=== PATIENT | female | born 1975 | race Caucasian/White ===

== ENCOUNTER 2019-12-29 14:13 | Emergency (ER) | payer OTHER, SELFPAY ==
[2019-12-29 14:24] VITALS: BP 114/62; PULSE 74; RESP 18; TEMP 37.4; O2SAT 99
--- NOTE | 2019-12-29 15:04 | ED.GENADULT ---
HPI - General Adult General Chief complaint: Upper Respiratory Infection Stated complaint: Fever Source: patient Mode of arrival: ambulatory Limitations: no limitations History of Present Illness HPI narrative: Patient is a 44-year-old female who presents complaining of sore throat, fever, body aches and weakness x2 days. 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 She denies chest pain or shortness of breath. She reports taking [id number] medications with limited relief. MD complaint: Influenza-like symptoms Related Data Home Medications Medication Instructions Recorded Confirmed levothyroxine 175 mcg DAILY 12/29/19 12/29/19 triamterene-hydrochlorothiazid 1 cap DAILY 12/29/19 12/29/19 Allergies Allergy/AdvReac Type Severity Reaction Status Date / Time PCN Allergy Intermediate Hives / Uncoded 12/29/19 14:18 Red Face Review of Systems Review of Systems: Narrative: CONSTITUTIONAL: Reports fever and chills, reports generalized weakness EYES: Denies visual changes, redness, or discharge. ENT: Denies rhinorrhea, congestion, reports sore throat CARDIOVASCULAR: Denies chest pain, palpitations, or edema. RESPIRATORY: Reports cough, denies dyspnea. GASTROINTESTINAL: Denies abdominal pain, nausea, vomiting, or diarrhea. GENITOURINARY: Denies dysuria or hematuria. SKIN: Denies rash or itching. MUSCULOSKELETAL: Denies back pain, joint pain, or myalgia. NEUROLOGIC: Denies headache, numbness, dizziness, or weakness. PSYCHIATRIC: Denies anxiety or depression. [facility] Past Medical History Medical History HTN (hypertension) Hypercholesterolemia Surgical History Surgical History Gastric bypass status for obesity Hx of cholecystectomy Social History Social History (Updated 12/29/19 @ 15:08 by AMINAH Clemons) Smoking status: Never smoker Alcohol intake: never Substance use: never Living arrangements: with family Occupation/Education: occupation Gender identity (if verbalized by the patient): Female Exam Narrative: Exam Narrative: GENERAL: Ill-appearing but well-nourished, and in no acute distress. HEAD: Normocephalic, atraumatic. EYES: EOMI. No redness or drainage. Conjunctiva are normal. ENT: Mucous membranes pink and moist. Nares clear. No rhinorrhea. TMs normal bilaterally. Throat mild erythema, no edema l. Uvula midline. NECK: AROM. Supple. No lymphadenopathy. CHEST: No respiratory distress. Clear to auscultation. HEART: Regular rate and rhythm. No murmur appreciated. Normal peripheral pulses. GI: Soft, nontender without rebound, or guarding. No distention. Bowel sounds normal in all quadrants. EXTREMITIES: Normal range of motion. No edema. SKIN: Warm, dry, no rash. NEURO: No focal deficits. Alert and oriented x3. Gait steady. PSYCH: Normal affect. No signs of depression or anxiety. Course Vital Signs Vital signs: Vital Signs Temperature 37.4 C 12/29/19 14:24 Pulse Rate 74 12/29/19 14:24 Respiratory Rate 18 12/29/19 14:24 Blood Pressure 114/62 12/29/19 14:24 Pulse Oximetry 99 12/29/19 14:24 Temperature 37.4 C 12/29/19 14:24 Pulse Rate 74 12/29/19 14:24 Respiratory Rate 18 12/29/19 14:24 Blood Pressure 114/62 12/29/19 14:24 Pulse Oximetry 99 12/29/19 14:24 Reviewed. Influenza positive Medical Decision Making MDM Narrative Medical decision making narrative: Patient is influenza positive. Discussed plan of care with patient. Patient be started on Tamiflu at this time. Work note provided. Patient is stable for discharge to home with outpatient follow-up as needed. Differential Diagnosis Differential Diagnosis: Influenza, pharyngitis, URI, Vital Signs Vital Signs: Vital Signs Temperature 37.4 C 12/29/19 14:24 Pulse Rate 74 12/29/19 14:24 Respiratory Rate 18 12/29/19 14:24
== END 2019-12-29 15:15 | disposition home or self-care (01) ==
PROVIDERS: Emergency Provider Nurse Practitioner; PCP Nurse Practitioner Family
DX: J10.1 Influenza due to other identified influenza virus with other respiratory manifestations (principal); I10 Essential (primary) hypertension; E78.00 Pure hypercholesterolemia, unspecified; Z98.84 Bariatric surgery status
CPT/HCPCS: 87081; 87804; 87880; 99213; G0463

== ENCOUNTER 2021-02-14 10:14 | Emergency (ER) | payer OTHER, SELFPAY ==
--- NOTE | ~2021-02-14 | XR_ITS ---
EXAMINATION: XR chest 2V DATE: 02/14/2021 10:40 INDICATION: Cough. TECHNIQUE: Frontal and lateral views of the chest were obtained. COMPARISON: None. FINDINGS: The chest demonstrates clear lungs without pneumonia, pleural effusion, or pneumothorax. Th e heart size is normal. There are surgical clips in the abdomen. IMPRESSION: 1. No acute cardiopulmonary disease. Reviewed, dictated and finalized at location A.
[2021-02-14 10:24] VITALS: BP 139/77; PULSE 69; RESP 16; TEMP 36.8; O2SAT 99
--- NOTE | 2021-02-14 10:30 | ED.URI ---
HPI - URI/Sore Throat General Chief Complaint: Upper Respiratory Infection Stated Complaint: COUGH Time Seen by Provider: 02/14/21 10:30 Source: patient Mode of arrival: ambulatory Limitations: no limitations History of Present Illness HPI Narrative: Rachael Martin is a 45 yo female with c/o cough x 10 days with thick dark yellow mucous, has only used NyQuil states that she will stay up all night long coughing she did not take the NyQuil Related Data Home Medications Medication Instructions Recorded Confirmed levonorgestrel [Mirena] 1 device INTRAUTERINE ONCE 02/14/21 02/14/21 levothyroxine 1 mcg PO DAILY 02/14/21 02/14/21 triamterene-hydrochlorothiazid 1 cap PO DAILY 02/14/21 02/14/21 Allergies Allergy/AdvReac Type Severity Reaction Status Date / Time PCN Allergy Intermediate Hives / Uncoded 02/14/21 10:29 Red Face Review of Systems Review of Systems: Narrative: CONSTITUTIONAL: Denies fever, chills, sweats. EYES: Denies visual changes, redness, discharge. ENT: Denies rhinorrhea, congestion, sore throat, otalgia. CARDIOVASCULAR: Denies chest pain, palpitations, edema. RESPIRATORY: Denies dyspnea, wheezing, intermittent productive cough GASTROINTESTINAL: Denies abdominal pain, nausea, vomiting, diarrhea. GENITOURINARY: Denies dysuria, hematuria, abnormal discharge SKIN: Denies rash or itching. NEUROLOGIC: Denies numbness, or focal weakness. PSYCHIATRIC: Denies anxiety or depression. PMFSH Past Medical History Medical History (Updated 02/14/21 @ 10:58 by Jyothi Torres CNP) HTN (hypertension) Hypercholesterolemia Surgical History Surgical History Gastric bypass status for obesity Hx of cholecystectomy Social History Social History Smoking status: Never smoker Alcohol intake: never Substance use: never Gender identity (if verbalized by the patient): Female Comments At time of signature, I agree with nursing past medical, surgical, social and family history. There is no relevant family history pertinent to the presenting complaint. Exam Narrative: Exam Narrative: GENERAL: This is a well-nourished, well-developed patient, in mild distress. Obese HEAD: normocephalic, atraumatic. EYES: Sclera clear/white. Vision is grossly intact. EARS: External ears normal,. Hearing grossly intact. No erythema of the auditory canal NOSE: External nose normal without nasal discharge, nares without redness, a dry hacking cough on exam rhinorrhea. THROAT: Mucous membranes moist, posterior pharynx mild erythema- NECK: Neck supple, non-tender CARDIOVASCULAR: Regular rate and rhythm without murmurs, gallops, or rubs. RESPIRATORY: Coarse to auscultation. Breath sounds equal bilaterally. No wheezes, rales, or rhonchi. GASTROINTESTINAL: Abdomen soft, non-tender, SKIN: warm, intact with no suspicious lesions or rash, good texture and turgor. NEURO: awake, alert, and oriented to person, place and time. There were no obvious focal neurologic abnormalities. Steady gait EXTREMITIES: Normal range of motion. BACK: Nontender without deformity Course Course Emergency Course: [facility] complaints of a cough x10 days it is productive of yellow thick mucus Chest x-ray shows no acute cardiopulmonary disease Started on prednisone and Zithromax and cough medicine Follow-up with primary care physician Vital Signs Vital signs: Vital Signs Temperature 98.2 F 02/14/21 10:24 Pulse Rate 69 02/14/21 10:24 Respiratory Rate 16 02/14/21 10:24 Blood Pressure 139/77 02/14/21 10:24 Pulse Oximetry 99 02/14/21 10:24 Temperature 98.2 F 02/14/21 10:24 Pulse Rate 69 02/14/21 10:24 Respiratory Rate 16 02/14/21 10:24 Blood Pressure 139/77 02/14/21 10:24 Pulse Oximetry 99 02/14/21 10:24 MDM - URI/Sore Throat Differential Diagnosis Differential diagnosis: Likely upper re
== END 2021-02-14 11:06 | disposition home or self-care (01) ==
PROVIDERS: Emergency Provider Nurse Practitioner
DX: J40 Bronchitis, not specified as acute or chronic (principal); I10 Essential (primary) hypertension; E78.00 Pure hypercholesterolemia, unspecified; Z98.84 Bariatric surgery status
CPT/HCPCS: 71046; 99213; G0463

== ENCOUNTER 2023-04-18 17:46 | Emergency (ER) | payer OTHER, SELFPAY ==
[2023-04-18 17:55] VITALS: BP 134/77; PULSE 78; RESP 16; TEMP 37.1; O2SAT 99
--- NOTE | 2023-04-18 18:15 | ED.SKABFB ---
HPI - Skin/Abscess/Foreign Bdy General Chief complaint: Skin/Abscess/Foreign Body Stated complaint: Rash Time Seen by Provider: 04/18/23 18:15 Source: patient, RN notes reviewed and old records reviewed Mode of arrival: ambulatory Limitations: no limitations History of Present Illness HPI narrative: 47 year old female who presents to [facility] with complaints of developing red raised rash on neck anterior and posterior which started last night that has spread to her face and abdomen,arms, and into her groin. Patient denies any new medications, skin care products, lotions, food, medications or any contact with plants or animals. Patient reports that she has had hives in the past and never knew what caused them. Patient reports that she has been taking Benadryl and using Calamine lotion with no improvement or relief of itching.Patient denies any difficulty with breathing or swallowing,respirations even and nonlabored. MD complaint: rash Onset (ago): day(s) (day 2 of symptoms) Location: generalized Treatments prior to arrival: other (calamine and benadryl) Related Data Home Medications Medication Instructions Recorded Confirmed levonorgestrel 21 mcg/24 hours (8 1 device intrauterine ONCE 02/14/21 02/14/21 yrs) 52 mg intrauterine device (Mirena) levothyroxine 175 mcg tablet 1 mcg PO DAILY 02/14/21 02/14/21 triamterene 37.5 1 cap PO DAILY 02/14/21 02/14/21 mg-hydrochlorothiazide 25 mg capsule venlafaxine 75 mg capsule,extended mg PO 04/18/23 release 24 hr Allergies Allergy/AdvReac Type Severity Reaction Status Date / Time PCN Allergy Intermediate Hives / Uncoded 04/18/23 17:57 Red Face Review of Systems Review of Systems: CONSTITUTIONAL: Denies fever, chills, or sweats. CARDIOVASCULAR: Denies chest pain, palpitations, or edema. RESPIRATORY: Denies cough or dyspnea. SKIN: Reports raised red rash on neck, face, arms, abdomen, and also groin which is itchy. MUSCULOSKELETAL: Denies joint pain or myalgia. NEUROLOGIC: Denies headache, numbness, or weakness. All systems reviewed & are unremarkable except as noted in HPI and below PMFSH Past Medical History Medical History (Updated 04/20/23 @ 10:01 by Sheryl Zamudio NP) HTN (hypertension) Hypercholesterolemia Hypothyroid Surgical History Surgical History Gastric bypass status for obesity Hx of cholecystectomy Social History Social History Smoking status: Never smoker Alcohol intake: never Substance use: never Living arrangements: with family Occupation/Education: occupation Gender identity (if verbalized by the patient): Female Comments At time of signature, agree with nursing past medical, surgical, social and family history. There is no relevant family history pertinent to the presenting complaint Exam Narrative: GENERAL: Well-appearing, well-nourished, and in no acute distress. HEAD: Normocephalic, atraumatic. EYES: PERRLA, conjunctivae clear, and EOMI. ENT: Mucous membranes moist. Oropharynx without edema, erythema or lesions. NECK: Supple. No lymphadenopathy CHEST: Clear to auscultation. No respiratory distress.SAO2 99% on room air HEART: Regular rate and rhythm. SKIN: Warm, dry.? Patches of raised erythema with itching to neck,face, arms, abdomen and also groin, no pustules noted or drainage NEURO:? Alert and oriented x3. PSYCH: Normal mood and affect Course Course Emergency Course: Patient is aware of diagnosis, understands and agrees to treatment plan.? Anticipatory guidance given.? Patient agrees to follow-up as directed and is aware of reasons to seek care at the emergency department. Portions of this record may have been created with voice recognition software Level of Care: Express Care Visit Vital Signs Vital signs: Vital Signs Temperature 37.1 C 04/18/23 17:
[2023-04-18] MEDS: methylPREDNISolone ACETATE 80 MG/ML VIAL IM (18:33)
== END 2023-04-18 19:06 | disposition home or self-care (01) ==
PROVIDERS: Emergency Provider Registered Nurse
DX: L50.9 Urticaria, unspecified (principal); I10 Essential (primary) hypertension; E78.00 Pure hypercholesterolemia, unspecified; E03.9 Hypothyroidism, unspecified; Z98.84 Bariatric surgery status
CPT/HCPCS: 96372; 99213; G0463; J1040

== ENCOUNTER 2023-05-10 15:36 | Emergency (ER) | payer OTHER, SELFPAY ==
[2023-05-10 15:45] VITALS: BP 139/85; PULSE 56; RESP 16; TEMP 36.4; O2SAT 100
--- NOTE | 2023-05-10 15:47 | ED.URI ---
HPI - URI/Sore Throat General Chief Complaint: Upper Respiratory Infection Stated Complaint: throat and chest issues, headache Time Seen by Provider: 05/10/23 15:49 Source: patient and RN notes reviewed Mode of arrival: ambulatory Limitations: no limitations History of Present Illness HPI Narrative: 47-year-old female presented for complaint of sinus pressure in the forehead, postnasal drainage, and cough for about 2 weeks. Taking Sudafed, Tylenol and ibuprofen without relief. She denies shortness of breath, wheezing, nausea, vomiting, diarrhea, fevers or chills. She denies sick contacts. She tested negative for COVID twice at the onset of symptoms. MD elicited complaint: cough Related Data Home Medications Medication Instructions Recorded Confirmed levonorgestrel 21 mcg/24 hours (8 1 device intrauterine ONCE 02/14/21 05/10/23 yrs) 52 mg intrauterine device (Mirena) levothyroxine 175 mcg tablet 1 mcg PO DAILY 02/14/21 05/10/23 triamterene 37.5 1 cap PO DAILY 02/14/21 05/10/23 mg-hydrochlorothiazide 25 mg capsule venlafaxine 75 mg capsule,extended 75 mg PO DAILY 04/18/23 05/10/23 release 24 hr Allergies Allergy/AdvReac Type Severity Reaction Status Date / Time PCN Allergy Intermediate Hives / Uncoded 05/10/23 15:46 Red Face Review of Systems Review of Systems: CONSTITUTIONAL: Denies malaise, chills, sweats, fever EYES: Denies visual changes, redness, or discharge ENT: Reports rhinorrhea, congestion, sinus pain, otalgia, sore throat CARDIOVASCULAR: Denies chest pain, palpitations, edema RESPIRATORY: Reports cough, post nasal drainage. Denies dyspnea GASTROINTESTINAL: Denies abdominal pain, nausea, vomiting, diarrhea SKIN: Denies rash or itching MUSCULOSKELETAL: Denies myalgia NEUROLOGIC: Denies headache PMFSH Past Medical History Medical History HTN (hypertension) Hypercholesterolemia Hypothyroid Surgical History Surgical History Gastric bypass status for obesity Hx of cholecystectomy Social History Social History Smoking status: Never smoker Alcohol intake: never Substance use: never Living arrangements: with family Occupation/Education: occupation Gender identity (if verbalized by the patient): Female Exam Narrative: GENERAL: Mildly ill-appearing, nontoxic no acute distress. HEAD: Normocephalic EYES: PERRLA, conjunctivae clear ENT: Mucous membranes moist. TMs pearly sanders with dull light reflex bilaterally; no tragal tenderness. Oropharynx erythematous without lesions or exudate, no drooling, no hoarseness, no trismus, uvula midline. No tripod positioning, muffled voice, soft palate or pharyngeal wall bulging NECK: Supple. No lymphadenopathy CHEST: Clear to auscultation, breath sounds equal. No wheezing, rhonchi, rales, or stridor. No respiratory distress, speaks in full sentences. HEART: Regular rate and rhythm. No murmur heard. SKIN: Warm, dry, no rash. NEURO: Alert and oriented x3. PSYCH: Normal mood and affect Course Course Emergency Course: Patient is aware of diagnosis, understands and agrees to treatment plan. Anticipatory guidance given. Patient agrees to follow-up as directed and is aware of reasons to seek care at the emergency department. Portions of this record may have been created with voice recognition software Level of Care: Express Care Visit Vital Signs Vital signs: Vital Signs Temperature 97.5 F L 05/10/23 15:45 Pulse Rate 56 L 05/10/23 15:45 Respiratory Rate 16 05/10/23 15:45 Blood Pressure 139/85 05/10/23 15:45 Pulse Oximetry 100 05/10/23 15:45 Oxygen Delivery Room Air 05/10/23 15:45 Temperature 97.5 F L 05/10/23 15:45 Pulse Rate 56 L 05/10/23 15:45 Respiratory Rate 16 05/10/23 15:45 Blood Pressure 139/85 05/10/23 1
== END 2023-05-10 15:59 | disposition home or self-care (01) ==
PROVIDERS: Emergency Provider Nurse Practitioner Family; PCP Nurse Practitioner Family
DX: J06.9 Acute upper respiratory infection, unspecified (principal); I10 Essential (primary) hypertension; E78.00 Pure hypercholesterolemia, unspecified; E06.9 Thyroiditis, unspecified; Z98.84 Bariatric surgery status
CPT/HCPCS: 99213; G0463

== ENCOUNTER 2023-05-14 18:08 | Emergency (ER) | payer OTHER, SELFPAY ==
[2023-05-14 18:19] VITALS: BP 138/96; PULSE 84; RESP 20; TEMP 36.9; O2SAT 100
--- NOTE | 2023-05-14 18:44 | ED.URI ---
HPI - URI/Sore Throat General Chief Complaint: Upper Respiratory Infection Stated Complaint: Sinus Time Seen by Provider: 05/14/23 18:35 Source: patient Mode of arrival: ambulatory Limitations: no limitations History of Present Illness HPI Narrative: 47-year-old female presents with complaint of sinus congestion and pressure, postnasal drainage, cough for the past 3 weeks. Reports coughing up a lot of flu . Patient seen at [facility] 1 week ago and given Z-Rajesh and prednisone. Reports no improvement to symptoms. Afebrile. Taking Claritin, Flonase and [id number] cold and flu medication daily. Reports sinus pressure worse when bending over. Denies nausea vomiting. No vision changes. Has not seen her primary care physician for this complaint. All systems reviewed and negative except as noted above. Related Data Home Medications Medication Instructions Recorded Confirmed levonorgestrel 21 mcg/24 hours (8 1 device intrauterine ONCE 02/14/21 05/10/23 yrs) 52 mg intrauterine device (Mirena) levothyroxine 175 mcg tablet 1 mcg PO DAILY 02/14/21 05/10/23 triamterene 37.5 1 cap PO DAILY 02/14/21 05/10/23 mg-hydrochlorothiazide 25 mg capsule venlafaxine 75 mg capsule,extended 75 mg PO DAILY 04/18/23 05/10/23 release 24 hr Allergies Allergy/AdvReac Type Severity Reaction Status Date / Time PCN Allergy Intermediate Hives / Uncoded 05/14/23 18:10 Red Face Review of Systems Review of Systems: CONSTITUTIONAL: Denies fever, chills, or sweats. EYES: Denies visual changes, redness, or discharge. ENT: Reports rhinorrhea, congestion, postnasal drainage. Denies sore throat, or otalgia. CARDIOVASCULAR: Denies chest pain, palpitations, or edema. RESPIRATORY: reports cough. Denies dyspnea. GASTROINTESTINAL: Denies abdominal pain, nausea, vomiting, or diarrhea. GENITOURINARY: Denies dysuria or hematuria. SKIN: Denies rash or itching. MUSCULOSKELETAL: Denies back pain, joint pain, or myalgia. NEUROLOGIC: Denies headache, numbness, or weakness. PSYCHIATRIC: Denies anxiety or depression. All other systems reviewed are negative, except as documented in HPI. [facility] Past Medical History Medical History HTN (hypertension) Hypercholesterolemia Hypothyroid Surgical History Surgical History Gastric bypass status for obesity Hx of cholecystectomy Social History Social History Smoking status: Never smoker Alcohol intake: never Substance use: never Living arrangements: with family Occupation/Education: occupation Gender identity (if verbalized by the patient): Female Comments At time of signature, agree with nursing past medical, surgical, social and family history. There is no relevant family history pertinent to the presenting complaint. Exam Narrative: GENERAL: This is a well-nourished, well-developed patient, in no apparent distress. HEAD: normocephalic, atraumatic. EYES: PERRL. Sclera clear/white. Vision is grossly intact. EARS: External ears normal, auditory canals clear and without drainage, fluid bilateral TMs without erythema. NOSE: External nose normal with Clear nasal drainage, erythema swelling to bilateral nares. Bilateral maxillary sinus tenderness. THROAT: Mucous membranes moist, Postnasal drainage noted. NECK: Neck supple, non-tender without lymphadenopathy, masses or thyromegaly. CARDIOVASCULAR: Regular rate and rhythm without murmurs, gallops, or rubs. RESPIRATORY: Clear to auscultation. Breath sounds equal bilaterally. No wheezes, rales, or rhonchi. SKIN: warm, Dry, intact with no suspicious lesions or rash, good texture and turgor. NEURO: awake, alert, and oriented to person, place and time. There were no obvious focal neurologic abnormalities. EXTREMITIES: No joint tenderness, effusion
== END 2023-05-14 18:49 | disposition home or self-care (01) ==
PROVIDERS: Emergency Provider Nurse Practitioner Family; PCP Nurse Practitioner Family
DX: J01.90 Acute sinusitis, unspecified (principal); I10 Essential (primary) hypertension; E78.00 Pure hypercholesterolemia, unspecified; E03.9 Hypothyroidism, unspecified
CPT/HCPCS: 99213; G0463